=== PATIENT | male | born 1975 | race Caucasian/White ===

== ENCOUNTER → 2019-07-13 10:06 | Outpatient (CLI) | payer BC, SELFPAY ==
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
== END ==
PROVIDERS: PCP Nurse Practitioner Family; Visit Provider Nurse Practitioner Family
DX: M54.5 Low back pain (principal)
CPT/HCPCS: 72100; 72220

== ENCOUNTER 2019-09-22 08:00 | Outpatient (RCR) | payer BC, SELFPAY | END 2019-09-22 10:00 | disposition home or self-care (01) | LOC: PT.CARL 08:00 | PROVIDERS: PCP Nurse Practitioner Family; Visit Provider Nurse Practitioner Family | DX: M54.5 Low back pain (principal) | CPT/HCPCS: 97010; 97014; 97035; 97110; 97140; 97163; 97164; G0283 ==

== ENCOUNTER 2021-09-13 11:36 | Emergency (ER) | payer OTHER, SELFPAY ==
[2021-09-13 12:40] VITALS: BP 117/88; PULSE 56; RESP 21; TEMP 36.9; O2SAT 98; BMI 30.8
--- NOTE | 2021-09-13 13:00 | HMH.EDUTC ---
[facility] [place] Disposition Clinical Impression: Right conjunctivitis Qualifiers: Conjunctivitis type: acute Acute conjunctivitis type: unspecified Qualified Code(s): H10.31 - Unspecified acute conjunctivitis, right eye Disposition: Home, Self-Care Condition on Discharge: Good Instructions: How to Instill Eye Drops, DI for Conjunctivitis Additional Instructions: Use the eye drops as directed. Strict hand washing in the house hold, because conjunctivitis is very contagious. Follow up with your regular doctor. GO TO THE ER FOR ANY WORSENING SYMPTOMS OR CONCERNS Prescriptions: Moxifloxacin HCl [Vigamox] 1 drp EYE-RIGHT TID 7 Days #3 ml Transmission Status: Received by [facility] #[id number] Referrals: Provider,Referral, [Primary Care Provider] - Forms: Work/School Release Time of Disposition: 13:07 Medical Decision Making - Medical Records Medical records reviewed: No: I reviewed the patient's medical records. - Lorenzo Inquiry Pt receiving controlled substance: No Vital Signs: 09/13/21 12:40 09/13/21 13:17 Temperature 98.5 F 98.5 F Temperature Source Oral Pulse Rate 56 L Pulse Rate [Left Brachial] 56 L Respiratory Rate 21 21 Blood Pressure 117/88 Blood Pressure [Left Arm] 117/88 Blood Pressure Mean [Left Arm] 97 Blood Pressure Source [Left Arm] Automatic Cuff Blood Pressure Position [Left Arm] Sitting 02 Sat by Pulse Oximetry 98 Oxygen Delivery Method Room Air [facility] [place] HPI - General Stated complaint: right eye burn sensation and discharge Time Seen by Provider: 09/13/21 13:00 - History of Present Illness Provider Complaint: He states that he has had right eye irritation since yesterday. He denies any injury or foreign body. He states that his eye was matted together this morning when he woke up. He denies that his vision is affected other that all the drainage makes it a little harder to see well. He denies eye pain. - Related Data Home Medications Medication Instructions Recorded Confirmed PARoxetine HCL [Paxil 10mg Tablet] 10 mg PO DAILY 09/21/18 09/21/18 Previous Rx's Medication Instructions Recorded Azithromycin [Z-[place] 250mg Tab*] 250 mg PO UD DOSE PK #6 tab 09/21/18 Promethazine/Dextromethorphan 5 ml PO Q6HP PRN #200 ml MDD 09/21/18 [Promethazine-Dm Solution] 30ML/DAY methylPREDNISolone [Medrol] 4 mg PO DIRECTED #21 tab.ds.pk 09/21/18 Moxifloxacin HCl [Vigamox] 1 drp EYE-RIGHT TID 7 Days #3 ml 09/13/21 Allergies Allergy/AdvReac Type Severity Reaction Status Date / Time No Known Allergies Allergy Verified 09/21/18 11:24 [facility] History - Hepatitis A Screen Attestation statement:: This patient has been screened for Hepatitis A risk factors. I have reviewed the patient's past medical history: Yes - Social History Alcohol Intake: current ROS Obtained: Yes All systems reviewed & no additional complaints - Constitutional Constitutional: Denies chills, Denies fever(s) - Eyes Eyes: Reports as per HPI, Denies change in vision - ENT Ears, Nose, Mouth, and Throat: Denies dizziness, Denies otalgia, Denies sore throat - Cardiovascular Cardiovascular: Denies chest pain - Respiratory Respiratory: Denies chest congestion, Denies cough, Denies dyspnea, Denies stridor, Denies wheezing Physical Exam - General General appearance: alert, in no apparent distress - Head Head exam: atraumatic, normocephalic, normal inspection - Eye Eye exam: Present: PERRL, EOMI, conjunctival redness, conjunctival injection, discharge - ENT ENT exam: Present: normal exam, normal oropharynx, mucous membranes moist, TM's normal bilaterally, normal external ear exam - Neck Neck exam: Present: normal inspection, full ROM, trachea midline. Absent: meningismus, lymphadenopathy - Chest Chest inspection: Present: normal inspection, symmetric chest wall rise. Absent: tenderness - Respiratory Respiratory exam: Present: normal lung sounds bilaterally. Ab
[2021-09-13 13:17] VITALS: BP 117/88; PULSE 56; RESP 21; TEMP 36.9; O2SAT 98
== END 2021-09-13 13:20 | disposition home or self-care (01) ==
PROVIDERS: Emergency Provider Nurse Practitioner Family
DX: H10.31 Unspecified acute conjunctivitis, right eye (principal)
CPT/HCPCS: 99202; G0463

== ENCOUNTER 2021-10-17 14:43 | Emergency (ER) | payer OTHER, SELFPAY ==
[2021-10-17 14:45] VITALS: BP 136/99; PULSE 75; RESP 16; TEMP 36.1; O2SAT 98; BMI 31.5
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
--- NOTE | 2021-10-17 15:07 | PC.NURSE ---
PATIENT DECLINED TO HAVE BLOOD WORK.
--- NOTE | 2021-10-17 15:15 | PC.NURSE ---
PATIENT TRANSPORTED TO CT AT THIS TIME.
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
[2021-10-17 17:52] VITALS: BP 130/86; PULSE 71; RESP 16; TEMP 36.2; O2SAT 98
== END 2021-10-17 17:01 | disposition home or self-care (01) ==
PROVIDERS: Emergency Provider Emergency Medicine; PCP Nurse Practitioner Family
DX: S16.1XXA Strain of muscle, fascia and tendon at neck level, initial encounter (principal); S43.101A Unspecified dislocation of right acromioclavicular joint, initial encounter; V43.52XA Car driver injured in collision with other type car in traffic accident, initial encounter; Y92.414 Local residential or business street as the place of occurrence of the external cause
CPT/HCPCS: 70450; 72125; 73030; 99282

== ENCOUNTER 2022-01-08 08:00 | Outpatient (RCR) | payer OTHER, SELFPAY | END 2022-01-31 13:57 | disposition home or self-care (01) | LOC: PT.CARL 08:00 | PROVIDERS: Visit Provider Orthopaedic Surgery | DX: S16.1XXD Strain of muscle, fascia and tendon at neck level, subsequent encounter (principal); S43.1 Subluxation and dislocation of acromioclavicular joint; V87.7XXS Person injured in collision between other specified motor vehicles (traffic), sequela | CPT/HCPCS: 97010; 97012; 97014; 97033; 97035; 97110; 97140; 97163; 97164; G0283 ==

== ENCOUNTER → 2023-05-24 12:02 | Outpatient (CLI) | payer BC, SELFPAY ==
--- NOTE | 2023-05-24 12:15 | XR_ITS ---
FINAL REPORT CLINICAL HISTORY: KIDNEY STONE rt flank pain FINDINGS: ABDOMEN SINGLE VIEW There is a nonspecific, nonobstructive bowel gas pattern. No bowel dilation is identified. No abnormal calcification is seen. IMPRESSION: No acute process. Reviewed, Interpreted and Dictated by Jose Pereira III, MD Transcribed by Lakesha Tan Authenticated and [facility]
== END ==
LOC: RAD 12:09
PROVIDERS: PCP Plastic Surgery; Visit Provider Nurse Practitioner Family
DX: N20.0 Calculus of kidney (principal)
CPT/HCPCS: 74018